=== PATIENT | male | born 1980 | race Caucasian/White ===

== ENCOUNTER 2020-02-04 09:49 | Emergency (ER) | payer OTHER, SELFPAY ==
[2020-02-04 09:56] VITALS: BP 117/80; PULSE 72; RESP 18; TEMP 36.4; O2SAT 98; BMI 31.7
--- NOTE | 2020-02-04 10:21 | ECG_ITS ---
[facility] Test Date: 2020-02-04 Pat Name: Felipe Pelaez Department: Room: Gender: Male Resident Assistant: : 1980 Requested By: Venancio Pool Order Number: [id number] Karri MD: BASIL WHITAKER Measurements Intervals [place] Rate: 69 P: 53 RI: 142 QRS: 74 QRSD: 106 T: 60 QT: 374 QTc: 402 Interpretive Statements SINUS RHYTHM No previous ECG available for comparison Electronically Signed On 02-04-2020 19:37:29 ADVANCE SEAL DELIVERY SYSTEM MAINTAINER by BASIL WHITAKER [id number] f
--- NOTE | 2020-02-04 10:21 | XR_ITS ---
WS: [id number] PORTABLE CHEST HISTORY: chest pain COMPARISON: None available. Lungs are clear and well expanded. No pleural effusion or pneumothorax. Cardiac size: Normal. Mediastinum/Aorta: Normal mediastinum. No osseous abnormality seen. XR/XR chest 1V portable [id number] IMPRESSION: Unremarkable portable chest.
[2020-02-04 10:54] LABS: Basophils # 0.1 10^3/uL (0.0-0.1); Basophils % 0.5 %; Eosinophils # 0.2 10^3/uL (0.0-0.8); Eosinophils % 1.3 %; Hematocrit 44.2 % (42.0-52.0); Hemoglobin 14.9 g/dL (11.7-16.6); Lymphocytes # 1.4 10^3/uL (0.8-4.8); Lymphocytes % 11.4 %; Mean Corpuscular HGB Conc 33.7 g/dL (30.0-36.0); Mean Corpuscular Hemoglobin 29.7 pg (28.0-34.0); Mean Platelet Volume 9.4 fL (7.4-10.4); Monocytes # 0.6 10^3/uL (0.2-0.9); Monocytes % 4.8 %; Neutrophils # 10.11 10^3/uL (1.8-7.7); Neutrophils % 81.4 %; Nucleated Red Blood Cells % 0 %; Platelet Count 270 10^3/cmm (130-400); Red Blood Count 5.02 10^6/uL (4.1-5.3); Red Cell Distribution Width 12.7 % (12.1-15.1); White Blood Count 12.4 10^3/uL (4.0-10.0)
[2020-02-04 11:13] LABS: Alanine Aminotransferase 47 U/L (0-41); Albumin Level 4.3 g/dL (3.5-5.2); Alkaline Phosphatase 50 IU/L (40-130); Aspartate Amino Transferase 22 U/L (0-40); Blood Urea Nitrogen 15 mg/dL (6-20); Calcium 9.4 mg/dL (8.5-10.5); Carbon Dioxide 26 mmol/L (22-29); Chloride 101 mmol/L (98-107); Globulin 2.5 g/dL (1.3-4.6); Glomerular Filtration Rate 106.5 mL/min (90-130); Glucose 120 mg/dL (65-115); Osmolality Calculated 284 mOsm/kg (285-295); Sodium 136 mmol/L (136-145); Total Bilirubin 0.5 mg/dL (0.15-1.2); Total Protein 6.8 g/dL (6.6-8.7)
[2020-02-04 11:14] LABS: Troponin(5th) Baseline 8 ng/L (0-15)
--- NOTE | 2020-02-04 11:17 | ED_ITS ---
HPI - Chest Pain General: Chief Complaint: Chest Pain Stated Complaint: CHEST PAIN Time Seen by Provider: 02/04/20 10:13 History of Present Illness: HPI narrative: 39-year-old male presents complaining of abdominal pain that began around 10[birth year]24/1929 this morning substernal chest pain without radiation. It was not associated with exertion he was at work but he is doing basically sedentary work he did have some nausea with it he was very slightly diaphoretic for short period of time and then resolved has not had any shortness of breath with it he has not really noticed anything is exacerbated or relieves it is still present on arrival in the ER. He has no known history of coronary artery disease. No history of heart disease hypertension or hyperlipidemia. MD complaint: chest pain Onset (ago): hour(s) Timing of current episode: episodic Onset: during rest Pain location: substernal Pain radiation: none Severity: moderate Quality: heaviness Relieving factors: nothing Exacerbating factors: nothing Associated symptoms: Reports diaphoresis; Deny abdominal pain, dyspnea, fever(s), leg edema, nausea, palpitations, sense of impending doom, syncope or vomiting Treatment prior to arrival: none Review of Systems Const: Reports: diaphoresis; Denies: fever(s) ENMT: Denies: throat pain, ear or mastoid pain, nasal discharge or nasal congestion Card: Denies: palpitations or syncope Resp: Denies: dyspnea GI: Denies: abdominal pain, nausea or vomiting : Denies: flank pain, dysuria, urinary frequency or urinary urgency Skin/Breast: Denies: rash or pruritus [facility] ED PFSH: Medical History (Updated 02/04/20 @ 13:12 by Venancio Kulkarni DO) No significant past medical history Physical Exam Const: COMMON NORMALS: no acute distress GENERAL APPEARANCE: cooperative and comfortable ORIENTATION/CONSCIOUSNESS: Yes awake, Yes oriented to person, Yes oriented to place and Yes oriented to time HENMT: COMMON NORMALS: normocephalic, atraumatic and hearing grossly normal bilaterally HEAD & SCALP: normocephalic and atraumatic Eye: COMMON NORMALS: Equal, round and reactive pupils present, EOMs intact bilaterally, conjunctivae normal and no scleral icterus CONJUNCTIVA: Yes conjunctivae normal PUPIL: Yes Equal, round and reactive pupils present Neck/C-Spine: COMMON NORMALS: no JVD Resp: COMMON NORMALS: normal respiratory effort, No retractions, No use of accessory muscles and clear to auscultation bilaterally AUSCULTATION: clear to auscultation bilaterally Cardio: COMMON NORMALS: no JVD, regular rate, regular rhythm and No murmurs present (Cardio) RATE: regular rate RHYTHM: regular rhythm GI: COMMON NORMALS: Soft to palpation and No hepatosplenomegaly present AUSCULTATION: Yes normoactive bowel sounds PALPATION: Yes Soft to palpation, No Tenderness to palpation present (GI), No Guarding due to palpation present (GI) and Yes No hepatosplenomegaly present Extremity: COMMON NORMALS: normal to inspection, capillary refill normal, no clubbing, cyanosis or edema, no calf tenderness and no pedal edema Neuro: SENSORIUM/ORIENTATION: Yes oriented to person, Yes oriented to place and Yes oriented to time Skin: COMMON NORMALS: no rashes or lesions noted GENERAL SKIN EXAM: no rashes or lesions noted Course Vital Signs: Vital signs: Vital Signs Temperature 97.6 F 02/04/20 09:56 Pulse Rate 67 02/04/20 11:31 Respiratory Rate 17 02/04/20 11:31 Blood Pressure 106/73 02/04/20 11:31 Pulse Oximetry 92 02/04/20 11:31 MDM - Chest Pain MDM Narrative: Medical decision making narrative: Delta troponin is negative. We will go and discharge patient home minimal exertional activities and started on 81 mg aspirin daily return if has any further problems will set up outpatient graded exercise stress test. Lab Data: Labs: Lab Results 02/04/20 02/04/20 02/04/20 Range/Units 10:44 10:44 10:44 WBC 12.4 H (4.0-10.0) 10^3/ uL RBC 5.02 (4.1-5.3) 10^6/u L Hgb 14.9 (11.7-16.6) g/dL Hct 44.2 (42.0-52.0) % MCV 88.0 (80-94) fL MCH 29.7 (28.0-34.0) pg MCHC 33.7 (30.0-36.0) g/dL RDW 12.7 (12.1-15.1) % Plt Count 270 (130-400) 10^3/c mm MPV 9.4 (7.4-10.4) fL Neut % (Auto) 81.4 % Lymph % (Auto) 11.4 % Mcclain % (Auto) 4.8 % Eos % (Auto) 1.3 % Baso % (Auto) 0.5 % Neut # (Auto) 10.11 H (1.8-7.7) 10^3/u L Lymph # (Auto) 1.4 (0.8-4.8) 10^3/u L Mcclain # (Auto) 0.6 (0.2-0.9) 10^3/u L Eos # (Auto) 0.2 (0.0-0.8) 10^3/u L Baso # (Auto) 0.1 (0.0-0.1) 10^3/u L Nucleated RBC % (a uto) 0 % Nucleated RBCs # 0.0 /100WBC Sodium 136 (136-145) mmol/L Potassium 4.0 (3.5-5.1) mmol/L Chloride 101 (98-107) mmol/L Carbon Dioxide 26 (22-29) mmol/L Anion Gap 13.0 (5-19) BUN 15 (6-20) mg/dL Creatinine 0.8 (0.7-1.2) mg/dL GFR Calculation 106.5 (90-130) mL/min Glucose 120 H (65-115) mg/dL Calculated Osmolal ity 284 L (285-295) mOsm/k g Calcium 9.4 (8.5-10.5) mg/dL Total Bilirubin 0.5 (0.15-1.2) mg/dL AST 22 (0-40) U/L ALT 47 H (0-41) U/L Alkaline Phosphata se 50 (40-130) IU/L Troponin T Baselin e 8 (0-15) ng/L Troponin T 120 Min [place] (0-15) ng/L Delta Troponin T (0-10) ABS# Total Protein 6.8 (6.6-8.7) g/dL Albumin 4.3 (3.5-5.2) g/dL Globulin 2.5 (1.3-4.6) g/dL 18/20 Range/Units 12:40 WBC (4.0-10.0) 10^3/ uL RBC (4.1-5.3) 10^6/u L Hgb (11.7-16.6) g/dL Hct (42.0-52.0) % MCV (80-94) fL MCH (28.0-34.0) pg MCHC (30.0-36.0) g/dL RDW (12.1-15.1) % Plt Count (130-400) 10^3/c mm MPV (7.4-10.4) fL Neut % (Auto) % Lymph % (Auto) % Mcclain % (Auto) % Eos % (Auto) % Baso % (Auto) % Neut # (Auto) (1.8-7.7) 10^3/u L Lymph # (Auto) (0.8-4.8) 10^3/u L Mcclain # (Auto) (0.2-0.9) 10^3/u L Eos # (Auto) (0.0-0.8) 10^3/u L Baso # (Auto) (0.0-0.1) 10^3/u L Nucleated RBC % (a uto) % Nucleated RBCs # /100WBC Sodium (136-145) mmol/L Potassium (3.5-5.1) mmol/L Chloride (98-107) mmol/L Carbon Dioxide (22-29) mmol/L Anion Gap (5-19) BUN (6-20) mg/dL Creatinine (0.7-1.2) mg/dL GFR Calculation (90-130) mL/min Glucose (65-115) mg/dL Calculated Osmolal ity (285-295) mOsm/k g Calcium (8.5-10.5) mg/dL Total Bilirubin (0.15-1.2) mg/dL AST (0-40) U/L ALT (0-41) U/L Alkaline Phosphata se (40-130) IU/L Troponin T Baselin e (0-15) ng/L Troponin T 120 Min [place] 7.37 (0-15) ng/L Delta Troponin T -0.63 L (0-10) ABS# Total Protein (6.6-8.7) g/dL Albumin (3.5-5.2) g/dL Globulin (1.3-4.6) g/dL Discharge Plan Discharge Patient Disposition: Home Clinical Impression: Atypical chest pain Condition: Stable Prescriptions: New omeprazole 20 mg capsule,delayed release(DR/EC) 20 mg PO DAILY 28 Days RF: 0 aspirin 81 mg tablet,delayed release (DR/EC) 81 mg PO DAILY Qty: 30 RF: 0 No Action valacyclovir 500 mg tablet 500 mg PO DAILY RF: 0 Discharge Orders: Discharge Order (Routine); Ordered 02/04/20 Ordered By: Venancio Kulkarni Referrals: Marika Garcia APN [Primary Care Provider] - Activity Restrictions/Additional Instructions: Case management will call to set up a graded exercise cardiac stress test. Start taking baby aspirin daily as well as omeprazole 20 mg p.o. daily given the worsening symptoms return. Coding Level of Care Code ED Carpenter Wooden Tank Erecting for Jana Fwd Exam Comprehensive
[2020-02-04 11:29] VITALS: O2SAT 93
[2020-02-04 11:31] VITALS: BP 106/73; PULSE 67; RESP 17; O2SAT 92
--- NOTE | 2020-02-04 12:21 | ECG_ITS ---
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
[2020-02-04 13:09] LABS: Troponin 5 2HR 7.37 ng/L (0-15)
[2020-02-04 13:11] LABS: Troponin 5 2HR Delta -0.63 ABS# (0-10)
[2020-02-04 13:52] VITALS: BP 109/69; PULSE 70; RESP 18; O2SAT 97
--- NOTE | 2020-02-04 15:35 | DCPLANNER ---
digital learning platforms manager was asked to schedule a follow up appointment for patient for an outpatient stress test. digital learning platforms manager faxed order to centralized scheduling, will call for appointment information.
--- NOTE | 2020-02-10 14:58 | DCPLANNER ---
Patient has an out patient stress test scheduled for Tuesday February 25, 2020 at 12:15. Centralized scheduling will call patient with appointment information.
--- NOTE | 2020-02-27 14:58 | DCPLANNER ---
Patient had a stress test scheduled - patient did attend appointment.
== END 2020-02-04 13:56 | disposition home or self-care (01) ==
PROVIDERS: Emergency Provider Family Medicine; PCP Nurse Practitioner Family
DX: R07.89 Other chest pain (principal)
CPT/HCPCS: 12345; 71045; 80053; 84484; 85025; 93005; 99283

== ENCOUNTER 2020-02-23 08:11 | Outpatient (CLI) | payer OTHER, SELFPAY ==
[2020-02-23 08:26] VITALS: BMI 29.5
--- NOTE | 2020-02-23 08:27 | ECG_ITS ---
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 Interpretive Statements NAME OF STUDY: TREADMILL STRESS TEST INDICATION: Chest Pain RESULTS TO [facility] PROCEDURE: At the baseline, the patient's blood pressure was with a heart rate of. The baseline electrocardiogram showed normal sinus rhythm with normal ST-Ts.. The patient exercised for 9 minutes and 50 seconds on a standard Reece protocol. Patient attained a maximum heart rate of 181 beats per minute(101% of the maximum predicted heart rate) with a blood pressure at the peak exercise of 206/107 mm Hg. The EKG at the peak exercise revealed no significant changes. Patient did not have any chest pain or any significant cardiac arrhythmias with the exercise During the recovery phase, there were no new changes. Blood pressure at the end of the recovery phase was 139/88 mm Hg with a heart rate of 108 per minute. CONCLUSION: 1. No significant EKG changes with the treadmill exercise. 2. No exercise-induced chest pain or cardiac arrhythmia 3. Good exercise tolerance, attained a maximum of 13.5 METs Electronically Signed On 02-25-2020 19:51:40 INSTRUMENT ASSEMBLY SUPERVISOR by Nazario Mixon M.D. [id number]
[2020-02-23 09:36] VITALS: BP 145/79; PULSE 106
== END 2020-02-23 08:12 | disposition home or self-care (01) ==
LOC: CDL 08:18
PROVIDERS: PCP Nurse Practitioner Family; Visit Provider Family Medicine
DX: R07.89 Other chest pain (principal)
CPT/HCPCS: 93017

== ENCOUNTER 2020-04-19 19:49 | Emergency (ER) | payer OTHER, SELFPAY ==
[2020-04-19 20:15] VITALS: BP 134/88; PULSE 116; RESP 14; TEMP 37.3; O2SAT 98; BMI 32.9
[2020-04-19 22:01] VITALS: BP 143/118; PULSE 104; RESP 17; O2SAT 98
--- NOTE | 2020-04-19 22:05 | W.ED.SKABFB ---
HPI - Skin/Abscess/Foreign Bdy General: Chief complaint: Skin/Abscess/Foreign Body Stated complaint: insect bite Time Seen by Provider: 04/19/20 21:55 History of Present Illness: HPI narrative: Patient being treated for spider bite. Started in the left knee area and now that has had some changes in it. Has a spot in his pubic hair that is white and looks like a bite and then left inner thigh area. Has not seen any brown recluse is in his house. The bite on his leg by his knee has been approximately week and just getting worse. Does not have any redness really surrounding it no redness or severe pain spreading from it. Hurts worse when it is uncovered patient says. complaint: abscess/boil Onset (ago): day(s) Tetanus up to date: yes Location: LLE Severity: mild Severity scale (1-10): 2 Quality: aching Associated symptoms: Reports no associated symptoms; Deny chills, fever(s), nausea or vomiting Treatments prior to arrival: attempted to drain pus at home Review of Systems Const: Denies: fever(s), chills or body aches Eyes: Denies: change in vision or blurry vision ENMT: Denies: throat pain or nasal congestion Card: Denies: chest pain or dyspnea on exertion Resp: Denies: dyspnea, productive cough or non-productive cough GI: Denies: abdominal pain, nausea or vomiting : Denies: difficulty urinating Musc: Denies: extremity pain Skin/Breast: Reports: erythema (Area above left knee that appears to be a spider bite worsening) and other (Has very pubic area that looks like a small pimple and then 1 in his left u); Denies: rash Neuro: Denies: headache(s) Psych: Denies: anxiety or depression Fletcher/Lymph: Denies: easy bruising PFS ED PFSH: Medical History No significant past medical history Physical Exam Const: COMMON NORMALS: no acute distress, average body habitus and patient oriented x3 HENMT: COMMON NORMALS: normocephalic HEAD & SCALP: normal to inspection and normocephalic FACE & SINUS: normal facial exam Eye: COMMON NORMALS: conjunctivae normal GENERAL EYE: appearance normal, both eyes and all related structures CONJUNCTIVA: Yes conjunctivae normal Neck/C-Spine: COMMON NORMALS: no JVD Chest: COMMONS NORMALS: normal inspection of the chest Resp: COMMON NORMALS: normal respiratory effort and clear to auscultation bilaterally AUSCULTATION: clear to auscultation bilaterally Cardio: COMMON NORMALS: no JVD, regular rate and regular rhythm RATE: regular rate RHYTHM: regular rhythm GI: COMMON NORMALS: Normal to inspection, nondistended, normoactive bowel sounds present Extremity: COMMON NORMALS: normal to inspection and full ROM Neuro: COMMON NORMALS: patient oriented x3 Skin: OTHER: Patient has 2 small pimples 1 pubic area hair area and then left inner thigh. Area above his left knee approximately 2 inches above quarter shaped with no eschar but definitely change in the tissue looks thick nonpurulent more consistent with a brown recluse bite is not healing. Has no real surrounding erythema or cellulitis. Course Vital Signs: Vital signs: Vital Signs Temperature 99.2 F 04/19/20 20:15 Pulse Rate 104 H 04/19/20 22:01 Respiratory Rate 17 04/19/20 22:01 Blood Pressure 143/118 04/19/20 22:01 Pulse Oximetry 98 04/19/20 22:01 Discharge Plan Discharge Condition: Good Prescriptions: No Action valacyclovir 500 mg tablet 500 mg PO DAILY RF: 0 aspirin 81 mg tablet,delayed release (DR/EC) 81 mg PO DAILY Qty: 30 RF: 0 Coding Level of Care Code ED Video Production Assistant for Jana Fwd Exam Comprehensive
[2020-04-19] MEDS: HYDROcodone-acetaminophen 5-325 mg Tablet 1 TAB PO (22:18)
[2020-04-19 22:46] LABS: Basophils # 0.1 10^3/uL (0.0-0.1); Basophils % 0.5 %; Eosinophils # 0.4 10^3/uL (0.0-0.8); Eosinophils % 2.6 %; Hematocrit 47.3 % (42.0-52.0); Hemoglobin 15.8 g/dL (11.7-16.6); Lymphocytes # 3.5 10^3/uL (0.8-4.8); Lymphocytes % 25.7 %; Mean Corpuscular HGB Conc 33.4 g/dL (30.0-36.0); Mean Corpuscular Hemoglobin 29.6 pg (28.0-34.0); Mean Corpuscular Volume 88.7 fL (80-94); Mean Platelet Volume 9.4 fL (7.4-10.4); Monocytes # 1.1 10^3/uL (0.2-0.9); Monocytes % 8.2 %; Neutrophils # 8.38 10^3/uL (1.8-7.7); Neutrophils % 62.6 %; Nucleated Red Blood Cells % 0 %; Platelet Count 391 10^3/cmm (130-400); Red Blood Count 5.33 10^6/uL (4.1-5.3); Red Cell Distribution Width 12.7 % (12.1-15.1); White Blood Count 13.4 10^3/uL (4.0-10.0)
--- NOTE | 2020-04-20 09:52 | DCPLANNER ---
insurance risk manager had message to schedule a follow up appointment for patient with Wound Care. insurance risk manager called the Wound Care clinic, spoke with Katty. A follow up appointment is scheduled for Tuesday, April 21, 2020 at 8:[address] Fay. Clinic will call patient with appointment information.
--- NOTE | 2020-05-26 15:01 | DCPLANNER ---
Patient had a follow up appointment scheduled for 04.21.20 with Wound Care - patient did attend appointment.
== END 2020-04-19 23:06 | disposition home or self-care (01) ==
PROVIDERS: Emergency Provider Nurse Practitioner Family; PCP Nurse Practitioner Family
DX: L98.9 Disorder of the skin and subcutaneous tissue, unspecified (principal); Z79.82 Long term (current) use of aspirin
CPT/HCPCS: 12345; 85025; 87070; 87077; 87186; 99281; 99282

== ENCOUNTER 2020-04-21 08:27 | Outpatient (CLI) | payer OTHER, SELFPAY | END 2020-04-21 08:28 | disposition home or self-care (01) | LOC: WOUND 08:27 | PROVIDERS: PCP Nurse Practitioner Family; Visit Provider Thoracic Surgery (Cardiothoracic Vascular Surgery) | DX: L97.822 Non-pressure chronic ulcer of other part of left lower leg with fat layer exposed (principal); L98.492 Non-pressure chronic ulcer of skin of other sites with fat layer exposed | CPT/HCPCS: 11042; G0463 ==

== ENCOUNTER 2020-04-22 18:03 | Emergency (ER) | payer OTHER, SELFPAY ==
[2020-04-22 18:35] VITALS: BP 136/91; PULSE 98; RESP 18; TEMP 37.2; O2SAT 97; BMI 31.7
--- NOTE | 2020-04-22 19:07 | W.ED.WOUNDLC ---
HPI - Wound/Laceration General: Chief Complaint: Wound/Laceration Stated Complaint: Spiderbite/MRSA/Here yesterday for same Time Seen by Provider: 04/22/20 19:01 Source: patient Mode of arrival: ambulatory Limitations: no limitations History of Present Illness: HPI narrative: Felipe is a 39-year-old male who had multiple abscesses he had drain and is seeing wound care for his wound on his left inner thigh that they placed packing 2 days ago and he is post to have packing changes. He states it is too painful for him to do it at home and is here for packing change. Denies any fever. He just had his antibiotics switched and is currently on antibiotics. Denies any fever. Associated symptoms: Denies chills, fever(s), nausea or vomiting Review of Systems Const: Denies: fever(s), chills, body aches or change in appetite Eyes: Denies: blurry vision or eye discomfort ENMT: Denies: throat pain or dental pain Card: Denies: chest pain Resp: Denies: dyspnea GI: Denies: abdominal pain, nausea, vomiting or diarrhea : Denies: dysuria Musc: Denies: neck pain or back pain Skin/Breast: Denies: rash Neuro: Denies: headache(s) Psych: Denies: depression Fletcher/Lymph: Denies: easy bruising All/Imm: Denies: urticaria PFS ED PFSH: Medical History (Updated 04/22/20 @ 19:11 by Crystal Acevedo MD) No significant past medical history Physical Exam Const: COMMON NORMALS: no acute distress, patient oriented x3 and healthy appearing HENMT: COMMON NORMALS: normocephalic and atraumatic HEAD & SCALP: normocephalic and atraumatic Eye: COMMON NORMALS: Equal, round and reactive pupils present and EOMs intact bilaterally PUPIL: Yes Equal, round and reactive pupils present Neck/C-Spine: COMMON NORMALS: full ROM and supple Chest: COMMONS NORMALS: normal inspection of the chest and normal palpation of entire chest wall Resp: COMMON NORMALS: normal respiratory effort, No retractions, No use of accessory muscles and clear to auscultation bilaterally AUSCULTATION: clear to auscultation bilaterally Cardio: COMMON NORMALS: regular rate, regular rhythm and No murmurs present (Cardio) RATE: regular rate RHYTHM: regular rhythm GI: COMMON NORMALS: Normal to inspection, nondistended, normoactive bowel sounds present, Soft to palpation, non-tender and no masses PALPATION: Yes Soft to palpation Extremity: COMMON NORMALS: normal to inspection and full ROM Neuro: COMMON NORMALS: patient oriented x3, moves all extremities and no focal motor deficits Psych: COMMON NORMALS: mental status grossly normal, Normal thought process present and cooperative THOUGHT PROCESS: Normal thought process present Skin: NARRATIVE SKIN EXAM: Abscess to left inner thigh that does have a dressing placed. No signs of severe cellulitis. Course Vital Signs: Vital signs: Vital Signs Temperature 98.9 F 04/22/20 18:35 Pulse Rate 98 04/22/20 18:35 Respiratory Rate 18 04/22/20 18:35 Blood Pressure 136/91 04/22/20 18:35 Pulse Oximetry 97 04/22/20 18:35 MDM - Wound/Laceration MDM Narrative: Medical decision making narrative: Control presents here for dressing change. He states is been too painful for change at home. I did place 5 mL of lidocaine and change the dressing. Wound is healing very well. He is to continue antibiotics and follow-up with wound care. He stable for discharge. Discharge Plan Discharge Patient Disposition: Home Clinical Impression: Abscess, Change of dressing Condition: Stable Prescriptions: No Action valacyclovir 500 mg tablet 500 mg PO DAILY RF: 0 aspirin 81 mg tablet,delayed release (DR/EC) 81 mg PO DAILY Qty: 30 RF: 0 hydrocodone-acetaminophen 5-325 mg tablet 1 tab PO TID PRN (Reason: pain) Qty: 14 RF: 0 Discharge Orders: Discharge ED (Routine); Ordered 04/22/20 Ordered By: Crystal Acevedo Referrals: Almita Garcia FNP [Primary Care Provider] - Discharge Diet: Advance as tolerated Discharge Activity: Resume usual activity Patient Instructions: Abscess (ED) Coding Level of Care Code ED Gear Tooth Grinding Machine Operator for Jana Fwd Exam Comprehensive
[2020-04-22] MEDS: lidocaine 1% INJ 20 mL INJECTION (19:22)
[2020-04-22 19:54] VITALS: PULSE 68; RESP 16; O2SAT 98
== END 2020-04-22 19:57 | disposition home or self-care (01) ==
PROVIDERS: Emergency Provider Emergency Medicine; PCP Nurse Practitioner Family
DX: Z48.00 Encounter for change or removal of nonsurgical wound dressing (principal)
CPT/HCPCS: 12345; 99281; 99282

== ENCOUNTER 2020-04-28 09:27 | Outpatient (RCR) | payer OTHER, SELFPAY | END 2020-05-16 23:59 | disposition home or self-care (01) | LOC: WOUND 09:27 | PROVIDERS: PCP Nurse Practitioner Family; Visit Provider Thoracic Surgery (Cardiothoracic Vascular Surgery) | DX: A49.02 Methicillin resistant Staphylococcus aureus infection, unspecified site (principal); L97.822 Non-pressure chronic ulcer of other part of left lower leg with fat layer exposed; L98.492 Non-pressure chronic ulcer of skin of other sites with fat layer exposed | CPT/HCPCS: 11042 ==

== ENCOUNTER 2020-05-12 09:01 | Outpatient (CLI) | payer OTHER, SELFPAY | END 2020-05-12 09:02 | disposition home or self-care (01) | LOC: WOUND 09:03 | PROVIDERS: PCP Nurse Practitioner Family; Visit Provider Thoracic Surgery (Cardiothoracic Vascular Surgery) | DX: A49.02 Methicillin resistant Staphylococcus aureus infection, unspecified site (principal); L97.822 Non-pressure chronic ulcer of other part of left lower leg with fat layer exposed | CPT/HCPCS: 11042 ==

== ENCOUNTER 2020-05-19 09:17 | Outpatient (CLI) | payer OTHER, SELFPAY | END 2020-05-19 09:18 | disposition home or self-care (01) | LOC: WOUND 09:17 | PROVIDERS: PCP Nurse Practitioner Family; Visit Provider Thoracic Surgery (Cardiothoracic Vascular Surgery) | DX: Z09 Encounter for follow-up examination after completed treatment for conditions other than malignant neoplasm (principal) | CPT/HCPCS: 99212 ==